=== PATIENT | female | born 1965 | race Hispanic/Latino ===

== ENCOUNTER 2024-02-18 23:41 | Emergency (ER) | payer OTHER ==
[2024-02-19] MEDS ORDERED: KETOROLAC 30 MG/ML INJ ONE (00:05)
[2024-02-19] MEDS ORDERED: MORPHINE 4 MG/ML SYR ONE (00:05)
[2024-02-19] MEDS ORDERED: LIDOCAINE 1% 20 ML MDV ONE ×2 (00:05→03:27)
[2024-02-19] MEDS ORDERED: ONDANSETRON 4 MG/2 ML VIAL ONE (00:05)
[2024-02-19 00:32] LABS: Absolute Basophils 0.1 K/uL (0-0.5); Absolute Eosinophils 0.2 K/uL (0-0.5); Absolute Monocytes 0.5 K/uL (0.1-1.3); Absolute Neutrophil 3.3 K/uL (1.8-8.0); Basophils % 0.7 % (0-1.3); Eosinophils % 2.4 % (0-4.4); Hematocrit 38.1 % (36.0-45.0); Hemoglobin 12.5 g/dL (12.0-15.0); Lymphocytes % 49.8 % (15.3-44.8); MCH 31.1 pg (27.0-35.0); MCHC 32.8 g/dL (32.0-36.0); MCV 94.7 fL (80-100); MPV 8.3 fL (7.6-11.3); Monocytes % 6.6 % (3.3-12.3); Neutrophils % 40.5 % (41.7-73.7); Platelets 279 thou/uL (152-406); RBC Red Blood Cell Count 4.03 M/uL (3.86-4.86)
[2024-02-19 00:48] LABS: Albumin 3.5 g/dL (3.4-5.0); Albumin/Globulin Ratio 0.9 (1.1-1.8); Anion Gap 6.8 mEq/L (5.0-15.0); Bilirubin Total 0.4 mg/dL (0.2-1.0); Potassium 3.8 mEq/L (3.5-5.1); Protein, Total 7.5 g/dL (6.4-8.2)
[2024-02-19] MEDS ORDERED: METOCLOPRAMIDE 10 MG/2mL INJ ONE (01:15)
[2024-02-19] MEDS ORDERED: HYDROCODONE/APAP 5/325 MG TAB ONE (01:15)
[2024-02-19] MEDS ORDERED: IBUPROFEN 400 MG TAB ONE (01:15)
[2024-02-19] MEDS ORDERED: NA CHLORIDE 0.9% 100 ML ONE (01:16)
[2024-02-19] MEDS ORDERED: TDAP (DIPHTH,PERTUSS(ACELL),TET VAC) 0.5 ML VIAL IMVAC ONE (03:16)
[2024-02-19] MEDS ORDERED: CEPHALEXIN 250 MG CAP ONE (03:27)
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
[2024-02-19 04:37] VITALS: TEMP 98.8
[2024-02-19 04:43] VITALS: BP 115/58; O2SAT 97
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
== END 2024-02-19 04:19 | disposition home or self-care (01) ==
LOC: ER 23:41
DX: S01.01XA Laceration without foreign body of scalp, initial encounter (principal); S01.511A Laceration without foreign body of lip, initial encounter; S13.4XXA Sprain of ligaments of cervical spine, initial encounter; V59.50XA Passenger in pick-up truck or van injured in collision with unspecified motor vehicles in traffic accident, initial encounter
CPT/HCPCS: 85025; 36415; 83690; 80053; 70450; 71250; 72125; 74176; 12051; 12032; J2001 ×2; J2765; J2405; 12011; 13121; 96372; 96374; 96375; 99284